=== PATIENT | female | born 1945 | race Caucasian/White ===

== ENCOUNTER 2016-06-10 17:34 | Inpatient (IN) | payer MEDICARE, MEDICAID ==
[~2016-06-10] VITALS: Ht 160 cm; Wt 112.0 kg
--- NOTE | ~2016-06-10 | ECH ---
Transthoracic Echocardiography Report (TTE) Demographics Patient Name NEO ALLEN Date of Study 06/12/2016 Patient Number [id number] Visit Number [id number] Date of 1945 Room Number 431 Gender Female Number Age 71 year(s) Referring Thao Morales Special Officer Sherri Rueda [facility] Physician MD Melody Rodriguez Physician Interpreting Pa Moe MD Brick Layer Physician Supervising Ordering Thao Morales MD/P Physician Nurse [employer] Conclusions Summary Technically fair exam. The estimated left ventricular ejection fraction is 60-65% in underlying atrial fibrillation. The left ventricle is mildly dilated . Mildly dilated right ventricle with normal systolic function. The left atrium is mild to moderately dilated by LA volume index measurement. The right atrium is severely dilated. Mild mitral regurgitation by color Doppler. Mild tricuspid regurgitation by color Doppler. Estimated pulmonary pressures within normal range. Procedure Type of Study TTE procedure:Echo Complete SF. Procedure Date Date: 06/12/2016 Start: 10:20 AM Technical Quality: Adequate visualization Indications:Shortness of breath, Atrial fibrillation and Congestive heart failure. Appropriate Use Criteria: 9 Height: 63 inches Weight: 256 pounds BSA: 2.15 m Rhythm: Atrial fibrillation HR: 70 bpm BP: 126/50 mmHg M-Mode/2D Measurements LV Diastolic Dimension: 5.4 cm LV Systolic Dimension: 3.75 cm LV Septum Diastolic: 1 cm LV PW Diastolic: 0.8 cm AO Root Dimension: 2.68 cm Cardiac Output: 2.23 l/min LA Dimension: 4.19 cm Cardiac Index: 1.04 l/min*m RV Diastolic Dimension: 3.31 cm LA volume index: 41 ml/m LVOT: 1.82 cm LVOT VTI: 12.23 cm RV Base: 4.5 cm LV Stroke volume: 31.8 ml RV Mid: 3.5 cm LV Stroke volume index: 14.79 ml/m RV Length: 7.2 cm TAPSE: 3.3 cm Doppler Measurements AV Peak Velocity: 0.97 m/s MV Peak E-Wave: 1.19 m/s AV Peak Gradient: 3.76 mmHg AV Mean Gradient: 2.66 mmHg LVOT Peak Velocity: 0.53 m/s AV Area (Continuity):1.54 cm PV Peak Velocity: 0.82 m/s TR Velocity:2.46 m/s PV Peak Gradient: 2.67 mmHg TR Gradient:24.21 mmHg Estimated PASP: 34.21 mmHg Estimated RAP:10 mmHg Estimated RVSP: 34 mmHg RA Area: 27.42 cm Findings Left Ventricle The left ventricle is mildly dilated . Diastolic function indeterminate due to patient's arrhythmia. Right Ventricle Mildly dilated right ventricle with normal systolic function. Left Atrium The left atrium is mild to moderately dilated by LA volume index measurement. Right Atrium The right atrium is severely dilated. Mitral Valve Mild mitral annular calcification. Mild mitral regurgitation by color Doppler. Aortic Valve The aortic valve is mildly sclerotic. There is no aortic regurgitation by color Doppler. Tricuspid Valve Normal tricuspid valve structure and function. Mild tricuspid regurgitation by color Doppler. Estimated pulmonary pressures within normal range. Pulmonic Valve The pulmonic valve is not well visualized. Pericardial Effusion No evidence of pericardial effusion. Miscellaneous Visualized portions of the aortic root and ascending aorta appear normal in size. Pleural Effusion No evidence of pleural effusion. Signature
[2016-06-16] MEDS ORDERED: FEOSOL-DPS325 MG PO (16:29)
[2016-06-16] MEDS ORDERED: DELTASONE DPS10 MG PO (16:30)
[2016-06-16] MEDS ORDERED: DILT-XR240 MG PO (16:30)
[2016-06-16] MEDS ORDERED: ZAROXOLYN2.5 MG PO (16:30)
[2016-06-16] MEDS ORDERED: VITAMIN D-32000 UNI1 PO (16:31)
[2016-06-16] MEDS ORDERED: KLOR-CON M2020 ME1 PO (16:31)
[2016-06-16] MEDS ORDERED: SYNTHROID DPS0.05 MG PO (16:32)
[2016-06-16] MEDS ORDERED: LEXAPRO DPS20 MG PO (16:33)
[2016-06-16] MEDS ORDERED: PROVENTIL2.5 MG/3 M IH (16:33)
[2016-06-16] MEDS ORDERED: COUMADIN DPS3 MG PO (16:33)
[2016-06-16] MEDS ORDERED: PROVENTIL HFA6.7 GM IH (16:33)
[2016-06-16] MEDS ORDERED: LASIX DPS40 MG PO (16:33)
[2016-06-16] MEDS ORDERED: ZEBETA5 MG PO (16:34)
[2016-06-16] MEDS ORDERED: ATIVAN-DPS0.5 MG PO (16:34)
[2016-06-16] MEDS ORDERED: XALATAN2.5 ML PO (16:34)
[2016-06-16] MEDS ORDERED: PRILOSEC DPS20 MG PO (16:35)
[2016-06-16] MEDS ORDERED: LYRICA50 MG PO (16:35)
[2016-06-16] MEDS ORDERED: ATROVENT SOLN.2.5 ML IH (16:35)
[2016-06-16] MEDS ORDERED: SENOKOT DPS8.6 MG PO (16:35)
[2016-06-16] MEDS ORDERED: PULMICORT0.25 MG/2 IH (16:36)
[2016-06-16] MEDS ORDERED: TYLENOL DPS325 MG PO (16:36)
--- NOTE | 2016-06-17 12:37 | HP ---
ADMIT: 06/10/2016 RM/LOC: 431 [facility] MR#: [id number] [address] [address] EARLENE ALLEN [address] [place] [id number] History and Physical SEX: F AGE: 71 : 1945 DATE OF SERVICE: 06/10/2016 CHIEF COMPLAINT: Worsening shortness of breath for the last week. HISTORY OF PRESENT ILLNESS: Earlene is a 71-year-old woman with a somewhat complicated past history as outlined below. She stated that she has been fighting "cold symptoms" for the last 4-7 days and in fact they started on oral Keflex about 4 days ago. She continued to have a lot of "throat clearing cough" and worsening shortness of breath. She states she went to [place] yesterday and "I could hardly make it out to the parking lot, I was so short of breath." She felt somewhat lightheaded without episode, so drove herself to the emergency room where she was found to have a temp of 100.4, and O2 sats were 82% on room air on admission. On 3-4 L, her O2 sats increased to 95%. She was given Decadron and DuoNeb and she felt a bit better, but her O2 sats were still low without oxygen. Chest x-ray was negative and her general lab workup was essentially benign with negative sepsis markers. She is admitted for further evaluation and treatment. PAST MEDICAL HISTORY: She has medical diagnosis of a recent stage II left buttock pressure ulcer that had essentially healed, she has chronic atrial fibrillation and is on Coumadin, she has history of systemic hypertension and underlying moderate COPD (she sees Dr. Daly routinely). She is a former smoker. She has chronic low back and lower extremity pain syndrome. She is status post gastric bypass with about 100 pound weight loss in the last 5 years. She has diffuse degenerative arthritis, type 2 diabetes - improved after gastric bypass. She is also hypothyroid. MEDICATIONS: Include: 1. Ferrous sulfate 325 mg daily. 2. Metolazone 2.5 mg daily. 3. Prednisone 1 mg daily. 4. Diltiazem ER 240 mg daily. 5. Vitamin D 2000 International Units daily. 6. Potassium chloride 20 mEq b.i.d. 7. Levothyroxine 50 mcg daily. 8. Coumadin 3 mg daily. 9. Pulmicort 0.25 in nebulizer p.r.n. 10.Furosemide 40 mg b.i.d. 11.Albuterol 2.5 mg q.i.d. per nebulizer. 12.Celexa 20 mg daily. 13.Ventolin HFA p.r.n. 14.Lorazepam 0.5 mg q.6 hours p.r.n. 15.Bisoprolol 5 mg daily. 16.Latanoprost 0.005% one drop both eyes at bedtime. 17.Atrovent 0.02% q.i.d. (eyedrops). 18.Lyrica 50 mg t.i.d. 19.Senokot one or two tabs b.i.d. 20.Omeprazole 20 mg b.i.d. ADMIT: 06/10/2016 RM/LOC: 431 [facility] MR#: [id number] [address] [address] [place] [address] History and Physical SEX: F AGE: 71 : 1945 ALLERGIES: THERE ARE NO ALLERGIES REPORTED. SOCIAL HISTORY: Reveals that she is a former smoker. She does not use alcohol. She lives independently in her home. FAMILY HISTORY: Noncontributory. REVIEW OF SYSTEMS: Otherwise essentially negative. She reports no other recent illnesses. She denies any ominous chest pain or more worsening trouble breathing until the onset of these current symptoms. She just saw Dr. Daly a week or 10 days ago and no major Rx changes were made. She states her bladder and bowel functions have been normal. Her lower extremity edema has been stable. She has no history for neurologic disorder and her depression has been stable. PHYSICAL EXAM: VITAL SIGNS: Since admission, she has been afebrile. Blood pressures have been in the 105-120 systolic range with a pulse of 90 to 100 in atrial fibrillation on telemetry. HEENT: She has obvious nasal congestion. Throat is minimally inflamed with yellow postnasal drip. NECK: Reasonably supple. LUNGS: Actually now sound clear with diminished breath sounds. I do not detect any obvious wheezes or rhonchi or rales. CARDIAC: Exam shows distant sounds and irregular regular cardiac rhythm, about 100. I do not detect an obvious murmur. ABDOMEN: Soft. No masses, tenderness, organomegaly. EXTREMITIES: Lower extremities show no edema. She has palpable pulses in her feet. NEUROLOGIC: Essentially normal. IMPRESSION: 1. Exacerbation of chronic obstructive pulmonary disease. 2. Atrial fibrillation - on chronic Coumadin therapy. ADMIT: 06/10/2016 RM/LOC: 431 [facility] MR#: [id number] [address] [address] [place] [address] History and Physical SEX: F AGE: 71 : 1945 3. Recent left buttock pressure ulcer. 4. Systemic hypertension. 5. Chronic obstructive pulmonary disease. 6. Former smoker. 7. Chronic low back pain/lower extremity pain. 8. Status post gastric bypass. 9. Diffuse osteoarthritis. 10.Type 2 diabetes. PLAN: She has been admitted for bronchopulmonary "toilet" and dual antibiotic therapy. We will follow baseline labs. Further treatment will depend on her response for initial therapies. Ayush Osuna MD/ krysta JOB #: [id number] CC: Ayush Osuna MD, Attending Physician Ayush Osuna MD, Family Physician
--- NOTE | 2016-06-18 15:07 | CO ---
ADMIT: 06/10/2016 RM/LOC: 431 [facility] MR#: [id number] [address] [address] EARLENE ALLEN [address] [place] [id number] Consultation SEX: F AGE: 71 : 1945 DATE OF CONSULTATION: 06/12/2016 ATTENDING PHYSICIAN: Ayush Osuna MD CONSULTING PHYSICIAN: Michael Oliver MD REASON FOR CONSULTATION: Questionable congestive heart failure. COOPER Chauhan Student, dictating for Michael Oliver MD HISTORY OF PRESENT ILLNESS: Earlene is a pleasant 71-year-old female who I had the opportunity for Cardiology regarding question of congestive heart failure. The patient states that she was admitted for increasing shortness of breath, cough, stomach ache. She was admitted on June 10. The patient had a respiratory panel and was tested by [facility] and she tested positive for RSV. The patient has a medical history of AFib, hypertension, diabetes, tobacco use, hypothyroidism, GERD, glaucoma, and osteoarthritis. Her last cath was in 2007 that demonstrated an LAD with 20% blockage. Her last echo was in 2015, which showed an ejection fraction of 60%. The patient was last seen in [facility] on May 26, 2016, regarding her atrial fibrillation. The patient was on warfarin sodium for anticoagulation and bisoprolol 5 mg and diltiazem XR 180 mg capsule for rate control of her atrial fibrillation. At this time, the patient denies chest pain, palpitations, changes in vision, or headache. The patient does admit to increasing shortness of breath and worsening peripheral edema, especially on her lower extremities bilaterally. The patient pointed out that she has noted erythema around her medial malleolus on her right lower leg. PAST MEDICAL HISTORY: Significant for anxiety, asthma, allergic rhinitis, bronchitis, chronic cough, CAD, depression, diabetes, GERD, glaucoma, heartburn, hemorrhoids, obesity, sleep apnea, osteoarthritis, and ulcers. PAST SURGICAL HISTORY: Significant for left shoulder surgery in 2012, cholecystectomy, bilateral knee replacements, surgery of the left big toe, and a lyles's cyst removal. ALLERGIES: TO VARENICLINE TARTRATE OR CHANTIX. CURRENT MEDICATIONS: 1. Cardizem 240 mg p.o. daily. 2. Ferrous sulfate 325 mg p.o. daily. 3. Klor-Con 20 mEq p.o. b.i.d. 4. Lasix 40 mg p.o. b.i.d. 5. Lexapro 20 mg p.o. daily. 6. Lyrica 50 mg p.o. t.i.d. 7. Protonix 40 mg p.o. b.i.d. 8. Senokot 8.6 mg p.o. b.i.d. 9. Synthroid 0.05 mg p.o. at 5:30. 10.Vitamin D 1000 units p.o. daily. 11.Zaroxolyn 2.5 mg p.o. daily. ADMIT: 06/10/2016 RM/LOC: 431 [facility] MR#: [id number] [address] [address] [place] [address] Consultation SEX: F AGE: 71 : 1945 12.Zebeta 5 mg p.o. daily. 13.DuoNeb 3 mg IH q.i.d. 14.Proventil 2.5 mg by mouth IH q.i.d. 15.Xalatan 0.005% 2.5 mg at bedtime. 16.NovoLog 100 units subcu a.c. and at bedtime. 17.Decadron 8 mg q.8 hours. 18.Levaquin 150 mg q.24 hours. 19.Normal saline IV injection 10 mg IV daily. FAMILY HISTORY: Significant for myocardial infarction in her mother at age 72. Her mother also had emphysema. Her mother was also heavy smoker. Her daughter also has type 2 diabetes. SOCIAL HISTORY: The patient admits to using soda and caffeine daily. The patient has a sedentary activity level currently. She denies alcohol use or drug use. Currently she is on a low-sodium diet. The patient admits to 54-pack year smoking history. REVIEW OF SYSTEMS: GENERAL: Denies fatigue, fever, chills, sweats, rash, or weight loss. EYES: The patient admits to glaucoma in her left eye. Also notices hearing loss that is degenerative. Denies double vision, blurred vision, cataracts. Denies problems with nose, mouth, or throat. LUNGS: She admits to asthma, sleep apnea, emphysema. Denies cough, sputum production, or bronchitis. Denies snoring loudly, wakefulness at night, or fatigue upon awakening. HEART: She has significant hypertension. GASTROINTESTINAL: Denies heartburn or difficulty swallowing. No change in bowel habits. Denies dark or bloody stools. No history of ulcers, hiatal hernia, or gallbladder or liver disease. GENITOURINARY: Denies dysuria, hematuria, nocturia, urinary tract infection, or kidney stones. Denies history of renal insufficiency or failure. MUSCULOSKELETAL: Denies history of arthritis or gout. Denies muscle or joint pains. ENDOCRINE: Denies history of thyroid dysfunction or diabetes. HEMATOLOGIC: Denies history of anemia, easy bruising, or cancer. NEUROLOGIC: Denies chronic headaches, dizziness, syncope, stroke, seizures or numbness or tingling. PSYCHIATRIC: Denies history of mental illness or feelings of depression. PHYSICAL EXAMINATION: Per Dr. Oliver. VITAL SIGNS: Temperature 97, pulse 77, respirations 18, BP 126/50, and O2 of 94% with nasal cannula oxygen. Weight is up 5 pounds since her last visit in [facility], which was on 05/26/2016. GENERAL: The patient is currently short of breath, admits to nausea, body aches, but denies chest pain. HEENT: JVP is difficult to visualize. No lymphedema. HEART: Sounds irregularly irregular. LUNGS: Have end-expiratory wheezes audible at lung bases bilaterally. The ADMIT: 06/10/2016 RM/LOC: 431 [facility] MR#: [id number] [address] [address] EARLENE ALLEN [address] [place] [id number] Consultation SEX: F AGE: 71 : 1945 patient is not cyanotic. EXTREMITIES: Show 2 to 3+ peripheral edema below the knee and this is chronic. ABDOMEN: Distant bowel sounds. Obese, nontender, and nondistended. NEURO: Intact. PSYCH: Normal. DIAGNOSTIC DATA: Sodium was 135, potassium 4.1, chloride was 97, bicarb is 32, BUN was 27, creatinine was 0.9, glucose is 229, ALT was 52, AST was 42, albumin was 3.3. CK was 86. GFR was 64. BNP was 1952. Chest x-ray looked okay. Last EKG was 06/10/2016, demonstrated atrial fibrillation with rapid ventricular rate, old inferior infarction, possible septal infarction. ASSESSMENT AND PLAN: 1. Respiratory syncytial virus. 2. Lower extremity edema, this is chronic, but weight is up about 4 pounds. We will give her IV Lasix while she is here. Her chest x-ray appeared normal. The patient does not appear to have heart failure. 3. Permanent atrial fibrillation. The patient is on Coumadin and is being rate controlled with Zebeta and Cardizem. 4. Obesity. 5. Chronic obstructive pulmonary disease. 6. Nonobstructive coronary artery disease. The patient's symptoms seems to be more due to COPD exacerbation due to RSV. She is currently not showing any signs of heart failure on chest x-ray. I appreciate the Cardiology consult. We will continue to monitor the patient while she is here. Thank you for the consult. I have read and agreed with the documentation that has been completed regarding this visit. By signing this record, I attest that the documentation was completed in my physical presence and is an accurate record of the encounter. COOPER Chauhan Student / Michael Oliver MD / krysta JOB #: [id number] CC: Ayush Osuna MD, Attending Physician Ayush Osuna MD, Family Physician
--- NOTE | 2016-06-18 19:48 | DS ---
ADMIT: 06/10/2016 RM/LOC: 431 [facility] MR#: [id number] [facility]#: [id number] [address] [address] NEO ALLEN [address] [place] [address] Discharge Summary SEX: F AGE: 71 : 1945 ADMISSION DATE: 06/10/2016 DISCHARGE DATE: 06/15/2016 FINAL DIAGNOSES: 1. RSV (respiratory syncytial virus) bronchiolitis. 2. Chronic obstructive disease with exacerbation secondary to the RSV (respiratory syncytial virus) infection. 3. Chronic atrial fibrillation with chronic anticoagulation. 4. Obesity. 5. Nonobstructive coronary artery disease. 6. Gastroesophageal reflux. 7. Osteoarthritis degenerative changes with secondary joint pain and weakness. HISTORY OF PRESENT ILLNESS: This is a 71-year-old lady who typically lives on her own with family and has to use a walker or cane to get around because of her arthritis, her obesity, and debilitation. She came into the hospital with hypoxia and cold symptoms for several days. She had been on an oral antibiotic and was not getting any better. She had started to have some fevers. In the Emergency Room, oxygenation was 82% on room air. She was given DuoNeb and steroid. Chest x-ray was clear and lab workup was negative for sepsis markers. She was admitted for her hypoxia and further workup. She also has known nonobstructive coronary artery disease. There was concern for congestive heart failure and Cardiology was consulted. She had a little extra diuresis through this hospital stay. On 06/14, Cardiology signed off. She will follow up with Dr. Lopes for just a follow-up visit in about three to four weeks. She was still requiring oxygen at 2 L on 06/14. By the afternoon though, she weaned down to room air. Oxygen saturation remains 90% or greater even with ambulation in the halls. On 06/15, she is stable. No fevers. She is pretty much back to baseline. She has to use a walker to ambulate and she is independent in her room. With this respiratory virus, she can expect to have persistent cough for probably another week. She does not need any further antibiotics. There were no bacterial findings. She will be dismissed home and follow up in the next week or two. I do note that her INR bumped up to 3.7, so we will hold her Coumadin for a couple of days and then resume that with followup in the office. Please see her med list below. She was also encouraged to continue to follow a low- sodium and ADA diet, which will help prevent worsening edema, which had occurred when she was sick and just was not able to get up and around. Medicines are: 1. Cardizem 240 daily. 2. Iron 325 mg daily. 3. Potassium 20 mEq b.i.d. 4. Lasix 40 mg b.i.d. ADMIT: 06/10/2016 RM/LOC: 431 [facility] MR#: [id number] [address] [address] [place] [address] Discharge Summary SEX: F AGE: 71 : 1945 5. Lexapro 20 mg daily. 6. Lyrica 50 mg t.i.d. 7. Omeprazole 20 mg b.i.d. 8. Senokot one or two tabs b.i.d. 9. Synthroid 0.05 mg daily. 10.Vitamin D 2000 units daily. 11.Zaroxolyn 2.5 mg daily. 12.Zebeta 5 mg daily. 13.Xalatan eye drops, one drop in each eye at bedtime. 14.Ativan 0.5 mg once a day as needed for anxiety. 15.Tylenol 650 mg every 4 hours p.r.n. pain. 16.She will use Pulmicort 0.25 nebulized b.i.d. for ten days and then as needed for recurrent wheezing episodes, which was her previous routine. 17.She will also continue albuterol via nebulizer q.i.d. and every 3 hours p.r.n. 18.I will wean down her steroids. She was on Decadron in the hospital. She was typically taking 1 mg of prednisone a day at home. I will have her wean down by taking 10 mg of prednisone b.i.d. for three days, then 10 mg daily for three days, then 5 mg daily for three days, and then back down to 1 mg daily. 19.We will hold Coumadin on June 15 and June 16, and then restart at 1.5 mg on Tuesdays, , Saturdays, and 3 mg on Mondays, Wednesdays, Fridays, Sundays, and get another PT/INR and a BMP at her followup visit in about a week and half. Zoe Ward MD/ camila JOB #: [id number] CC: Ayush Osuna MD, Attending Physician Ayush Osuna MD, Family Physician
--- NOTE | 2016-06-25 15:34 | ER ---
ADMIT: 06/10/2016 RM/LOC: 431 [facility] MR#: [id number] [address] [address] NEO ALLEN [address] [place] [address] Emergency Room Report SEX: F AGE: 71 : 1945 DATE: 06/10/2016 CHIEF COMPLAINT: Shortness of breath. HISTORY OF PRESENT ILLNESS: This is a 71-year-old female who has a history of COPD, atrial fibrillation, diabetes, hypertension. She comes in complaining that she has had upper respiratory infection for the last 3 days. She felt very lightheaded and short of breath starting yesterday. She did start Keflex that she was prescribed from Dr. Osuna, but today she just felt significantly worse, felt lightheaded. When she arrived in the ER, she did have a low-grade temp of 100.4, saturations were 82% on room air. She is now on 4 L saturating at 95%. Feels a little bit better after Decadron and a DuoNeb. Chest x-ray was done, but it is negative for any pneumonia, over-read by Dr. Lockwood. CLINICAL IMPRESSION: Chronic obstructive pulmonary disease exacerbation. DISPOSITION: I did speak with Dr. Osuna at 1712 hours. He will admit the patient. Levaquin 750 mg IV has been started down here in the emergency room. COOPER Roldan / Anthony Lockwood MD / modl JOB #: [id number] CC: Ayush Osuna MD, Attending Physician Ayush Osuna MD, Family Physician
[2016-07-16] MEDS ORDERED: NORCO 7.5-3251 EACH PO (17:52)
[2016-07-16] MEDS ORDERED: PRILOSEC DPS20 MG PO (17:52)
[2016-07-16] MEDS ORDERED: XALATAN2.5 ML OU (17:52)
[2016-07-16] MEDS ORDERED: ZEBETA5 MG PO (17:53)
[2016-07-16] MEDS ORDERED: LYRICA150 MG PO (17:53)
[2016-07-16] MEDS ORDERED: FEOSOL-DPS325 MG PO (17:53)
[2016-07-16] MEDS ORDERED: VITAMIN D-32000 UNI1 PO (17:54)
[2016-07-16] MEDS ORDERED: ATIVAN-DPS0.5 MG PO (17:54)
[2016-07-16] MEDS ORDERED: COUMADIN DPS3 MG PO ×2 (17:55)
[2016-07-16] MEDS ORDERED: LASIX DPS40 MG PO (17:56)
[2016-07-16] MEDS ORDERED: PROVENTIL HFA6.7 GM IH (17:56)
[2016-07-16] MEDS ORDERED: KLOR-CON M2020 ME1 PO (17:56)
[2016-07-16] MEDS ORDERED: ZOVIRAX400 MG PO (17:57)
[2016-07-16] MEDS ORDERED: LEXAPRO DPS20 MG PO (17:57)
[2016-07-16] MEDS ORDERED: SYNTHROID DPS0.05 MG PO (17:57)
[2016-07-16] MEDS ORDERED: PULMICORT0.25 MG/2 IH (17:58)
[2016-07-16] MEDS ORDERED: COLACE-DPS100 MG PO (17:58)
[2016-07-16] MEDS ORDERED: DELTASONE DPS1 MG PO (17:58)
[2016-07-16] MEDS ORDERED: TYLENOL DPS325 MG PO (17:59)
[2016-07-16] MEDS ORDERED: MAALOX DPS30 ML PO (17:59)
[2016-07-16] MEDS ORDERED: NITROSTAT0.4 MG SL (18:00)
[2016-07-16] MEDS ORDERED: ANUSOL-HC30 GM PR (18:00)
== END 2016-06-15 14:50 | disposition home or self-care (01) | DRG 202 ==
LOC: ER 17:34 → 4PCU 19:12
PROVIDERS: ADMIT Family Medicine
DX: J21.0 Acute bronchiolitis due to respiratory syncytial virus (principal); J44.1 Chronic obstructive pulmonary disease with (acute) exacerbation; I48.2 Chronic atrial fibrillation; B97.4 Respiratory syncytial virus as the cause of diseases classified elsewhere; E11.9 Type 2 diabetes mellitus without complications; Z68.42 Body mass index [BMI] 45.0-49.9, adult; I10 Essential (primary) hypertension; G89.4 Chronic pain syndrome; M19.90 Unspecified osteoarthritis, unspecified site; E03.9 Hypothyroidism, unspecified; R60.9 Edema, unspecified; K21.9 Gastro-esophageal reflux disease without esophagitis; F41.9 Anxiety disorder, unspecified; J30.9 Allergic rhinitis, unspecified; I25.10 Atherosclerotic heart disease of native coronary artery without angina pectoris; F32.9 Major depressive disorder, single episode, unspecified; H40.9 Unspecified glaucoma; K64.9 Unspecified hemorrhoids; E66.9 Obesity, unspecified; G47.30 Sleep apnea, unspecified; Z98.84 Bariatric surgery status; Z87.891 Personal history of nicotine dependence; Z79.01 Long term (current) use of anticoagulants; Z98.0 Intestinal bypass and anastomosis status; Z96.653 Presence of artificial knee joint, bilateral

== ENCOUNTER 2016-07-13 16:38 | Observation (INO) | payer MEDICARE, MEDICAID ==
[~2016-07-13] VITALS: Ht 160 cm; Wt 111.4 kg
[~2016-07-13 16:38] MED LIST: ATIVAN-DPS0.5 MG PO; ATROVENT SOLN.2.5 ML IH; COUMADIN DPS3 MG PO; DELTASONE DPS10 MG PO; DILT-XR240 MG PO; FEOSOL-DPS325 MG PO; KLOR-CON M2020 ME1 PO; LASIX DPS40 MG PO; LEXAPRO DPS20 MG PO; LYRICA50 MG PO; PRILOSEC DPS20 MG PO; PROVENTIL HFA6.7 GM IH; PROVENTIL2.5 MG/3 M IH; PULMICORT0.25 MG/2 IH; SENOKOT DPS8.6 MG PO; SYNTHROID DPS0.05 MG PO; TYLENOL DPS325 MG PO; VITAMIN D-32000 UNI1 PO; XALATAN2.5 ML PO; ZAROXOLYN2.5 MG PO; ZEBETA5 MG PO
--- NOTE | 2016-07-15 07:07 | HP ---
ADMIT: 07/13/2016 RM/LOC: 414 [facility] MR#: [id number] [id number] [address] NEO ALLEN [address] [place] [address] History and Physical SEX: F AGE: 71 : 1945 DATE OF SERVICE: 07/13/2016 CHIEF COMPLAINT: Possible syncope with fall and head injury. HISTORY OF PRESENT ILLNESS: Maria Eugenia is a 71-year-old female. Yesterday evening, she was brushing her teeth at her bathroom sink. At this point, the history becomes a little more unclear, she did fall and hit her head. She may or may not have been unconscious. As I quizzed her on this, I suspect she probably was not unconscious, but maybe was a bit impaired. She did not seem to feel like she had any warning that this was going to happen. She had not just had a bowel movement or urinated nor was she having any nausea or vomiting. She was on the ground for 30 to 60 minutes then was able to get up under her own power. She did not call anyone, but had headaches over the next 24 hours, so she elected to come to the emergency room. Dr. Moffett examined her and did a CT scan of her head, chest x-ray, and some limited lab work and this is all reassuring, also an EKG showed her chronic atrial fibrillation. She is not having any chest pain or shortness of breath or other acute symptoms at this time. Recently, she had been seen by [facility] where she is followed for her cardiac issues, and due to increasing edema in her lower extremities, her metolazone was increased from 2.5 mg daily to 5 mg daily. This was about a week and half ago. Subsequent electrolytes done at our office a week later were unremarkable. PAST MEDICAL HISTORY: She was hospitalized at [facility] in June for upper respiratory infection due to RSV. She was short of breath and hypoxic on room air, was treated with steroids, nebulizers, and oxygen, but did not have sepsis. She has had issues with falls periodically according to her notes. She of course is on a lengthy list of medications below. Chronic medical problems include atrial fibrillation, for which she is on chronic Coumadin, hypertension, COPD, she is an on again and off again smoker, obesity for which she has had gastric sleeve surgery and has lost large amount of weight over the last year, obstructive sleep apnea but does not tolerate CPAP, chronic opiate use for chronic generalized pain particularly in the back, she is on over 50 morphine milliequivalents per day. Also, degenerative arthritis, type 2 diabetes for which she is now no longer on medications since her gastric sleeve surgery. Also, hypothyroidism, depression, diastolic congestive heart failure, and nonobstructive coronary artery disease. PAST SURGICAL HISTORY: Sleeve gastrectomy, cholecystectomy, carpal tunnel surgery, total knee arthroplasty, and cardiac catheterization. She has had toe surgery and Hawkins cyst removal. FAMILY HISTORY: Positive for asthma, coronary artery disease, and hypertension in various first-degree relatives. SOCIAL HISTORY: She is retired and disabled and single, still a light smoker. No alcohol. MEDICATIONS: ADMIT: 07/13/2016 RM/LOC: 414 [facility] MR#: [id number] [address] [place] [address] History and Physical SEX: F AGE: 71 : 1945 1. Metolazone 5 mg t.i.d. 2. Potassium chloride 30 mEq t.i.d. 3. Bisoprolol 5 mg daily. 4. Diltiazem CD 240 mg daily. 5. DuoNeb by nebulizer t.i.d. 6. Lexapro 20 mg daily. 7. Albuterol inhaler p.r.n. 8. Hydrocodone 7.5/325, she takes 100 tabs over 14 weeks, which works out to about 7 per day. 9. Lasix 40 mg b.i.d. 10.Latanoprost eyedrops b.i.d. 11.Levothyroxine 50 mcg daily. 12.Lorazepam 0.5 mg daily p.r.n. 13.Lyrica, I am uncertain of the dose, I see different doses. 14.Metolazone 5 mg daily. 15.Omeprazole 20 mg b.i.d. 16.Pulmicort 2 puffs b.i.d. 17.Vitamin D 2000 units daily. 18.Vitamin A capsule daily. 19.Warfarin 1.5 mg Thursday, Thursday, Thursday, and Thursday and 3 mg Thursday, , and Thursday. ALLERGIES: NONE KNOWN. REVIEW OF SYSTEMS: CONSTITUTIONAL: No chills or fevers. EYES: No acute complaints. ENT: No acute complaints. RESPIRATORY: Not short of breath or coughing. CARDIOVASCULAR: No chest pain. NEUROLOGIC: Possible syncope. No seizures. No new focal neurologic symptoms. PSYCHIATRIC: Depression is stable. GASTROINTESTINAL: No nausea, vomiting, diarrhea, or bowel changes. GENITOURINARY: No urinary changes. HEMATOLOGIC: No history of bleeding. No history of blood clots. PHYSICAL EXAMINATION: GENERAL: She is currently alert, comfortable, in no acute distress. She is alert, responsive, and appropriate. VITAL SIGNS: Temp 97.6, heart rate 100, respirations 20, BP 101/61 with a map of 68, and O2 saturation 91% on room air. NEUROLOGIC: Moves all extremities equally. Speech is not slurred. She is not aphasic. She is oriented x3. No cranial nerve abnormalities. Eye movement is full. PSYCH: She is calm, not overtly anxious or depressed. ENT: TMs are clear. No nasopharyngeal drainage. Throat is moist. No lesion seen. EYES: Pupils are equal and reactive to light. Sclerae are clear. NECK: No masses or lymphadenopathy or venous distention. ADMIT: 07/13/2016 RM/LOC: 414 [facility] MR#: [id number] [id number] [address] NEO ALLEN [address] [place] [address] History and Physical SEX: F AGE: 71 : 1945 HEART: Irregular rhythm. No murmurs. Rhythm is atrial fib. LUNGS: Clear to auscultation throughout, normal respiratory effort. BREASTS: Not examined. ABDOMEN: Still overweight female. No abdominal masses or tenderness. PELVIC AND RECTAL: Not performed. SKIN: No areas of acute rashes. EXTREMITIES: Lower extremities still minor edema, minor ruddiness of both lower legs. No ruthie cellulitis. No open areas. Upper extremities grossly normal. BACK: Nontender. IMPRESSION: 1. Syncope versus near syncope with the fall. 2. She has a hematoma on the right side of her forehead. 3. Posttraumatic headache possibly even mild concussion. 4. Hypokalemia. 5. All her chronic medical problems as discussed above. PLANS: She is OPO to telemetry. We will get orthostatic blood pressures as this could have be related to one of her medications such as metolazone dose that was increased. With her COPD and chronic opiate therapy, she certainly would be at risk for events such as this. We reviewed some of her medications. Medications we will give tonight include Lexapro, Lortab, potassium, Pulmicort, albuterol, and latanoprost. We will give other medications tomorrow. Since she has seen Cardiology and they are familiar with her and she has had this possible syncopal spell, we will ask them to weigh in on her case tomorrow. Franck Song MD/ krysta JOB #: [id number] CC: Ayush Osuna MD, Attending Physician Ayush Osuna MD, Family Physician
[2016-07-16] MEDS ORDERED: PRILOSEC DPS20 MG PO (17:52)
[2016-07-16] MEDS ORDERED: NORCO 7.5-3251 EACH PO (17:52)
[2016-07-16] MEDS ORDERED: XALATAN2.5 ML OU (17:52)
[2016-07-16] MEDS ORDERED: LYRICA150 MG PO (17:53)
[2016-07-16] MEDS ORDERED: ZEBETA5 MG PO (17:53)
[2016-07-16] MEDS ORDERED: FEOSOL-DPS325 MG PO (17:53)
[2016-07-16] MEDS ORDERED: VITAMIN D-32000 UNI1 PO (17:54)
[2016-07-16] MEDS ORDERED: ATIVAN-DPS0.5 MG PO (17:54)
[2016-07-16] MEDS ORDERED: COUMADIN DPS3 MG PO ×2 (17:55)
[2016-07-16] MEDS ORDERED: PROVENTIL HFA6.7 GM IH (17:56)
[2016-07-16] MEDS ORDERED: KLOR-CON M2020 ME1 PO (17:56)
[2016-07-16] MEDS ORDERED: LASIX DPS40 MG PO (17:56)
[2016-07-16] MEDS ORDERED: LEXAPRO DPS20 MG PO (17:57)
[2016-07-16] MEDS ORDERED: ZOVIRAX400 MG PO (17:57)
[2016-07-16] MEDS ORDERED: SYNTHROID DPS0.05 MG PO (17:57)
[2016-07-16] MEDS ORDERED: DELTASONE DPS1 MG PO (17:58)
[2016-07-16] MEDS ORDERED: PULMICORT0.25 MG/2 IH (17:58)
[2016-07-16] MEDS ORDERED: COLACE-DPS100 MG PO (17:58)
[2016-07-16] MEDS ORDERED: TYLENOL DPS325 MG PO (17:59)
[2016-07-16] MEDS ORDERED: MAALOX DPS30 ML PO (17:59)
[2016-07-16] MEDS ORDERED: ANUSOL-HC30 GM PR (18:00)
[2016-07-16] MEDS ORDERED: NITROSTAT0.4 MG SL (18:00)
--- NOTE | 2016-07-19 08:46 | ER ---
ADMIT: 07/13/2016 RM/LOC: ER [facility] MR#: [id number] [address] [address] NEO ALLEN [address] [place] [address] Emergency Room Report SEX: F AGE: 71 : 1945 DATE: 07/13/2016 This is a partial trauma note. This is a 71-year-old female who was brought into the Emergency Department after having a syncopal episode at home last night. She was brushing her teeth when she found herself on the floor. She struck her head on the sink on the way down. Did have an obvious contusion over the right forehead. She thinks she was down for just a matter of seconds. Says no premonition, no warning. PAST HISTORY: Atrial fibrillation, congestive heart failure. She is not certain whether she is a diabetic. She said she had been taking insulin in the past, but is currently not, it is apparently diet controlled. She has had no history of syncopal episodes in the past. PHYSICAL EXAMINATION: GENERAL: Reveals a 71-year-old female, who is in no acute distress. HEENT: There is an obvious contusion over the right forehead. Pupils are equal and reactive. Cranial nerves are intact. LUNGS: She has rhonchi bilaterally. CARDIOVASCULAR: Regular rate and regular rhythm. No murmurs, rubs, or gallops. ABDOMEN: Obese, soft, nontender. Positive bowel sounds. EXTREMITIES: Reveal 2+ pitting edema bilaterally. EMERGENCY ROOM COURSE: Partial trauma was called as well as a cardiac work up. Results of the labs revealed a CBC which was unremarkable. EKG showed atrial fibrillation with rate control. Chest x-ray showed vascular congestion. Her BNP was 1414. BUN was 29, glucose 168, potassium 3.0, INR was 1.93. The patient was admitted with a syncopal episode. Emanuel Moffett MD/ krysta JOB #: [id number] CC: Anthony Lockwood MD, Attending Physician
--- NOTE | 2016-07-25 11:50 | CO ---
ADMIT: 07/13/2016 RM/LOC: 414 [facility] MR#: [id number] [address] [address] EARLENE ALLEN [address] [place] [address] Consultation SEX: F AGE: 71 : 1945 DATE OF CONSULTATION: 07/14/2016 ATTENDING PHYSICIAN: Ayush Osuna MD CONSULTING PHYSICIAN: Sung Winn MD REASON FOR CONSULT: Near-syncope with atrial fibrillation. This is Rani Moreno RN, scribing for Dr. Abhi Winn. HISTORY OF PRESENT ILLNESS: Earlene is a 71-year-old female, I have been asked to see in Cardiology consultation by Dr. Song for recent fall, near- syncope, question syncopal episode with history of atrial fibrillation. She follows regularly with [facility], following with Dr. Oliver. She was just in the hospital last month for RSV. She has cardiac risk factors including history of atrial fibrillation, hypertension, diabetes mellitus, ongoing tobacco use with nonobstructive coronary artery disease, 20% mid LAD and diagonal 1. Last echocardiogram was in June of this year, showing ejection fraction of 60% with mild to moderate left atrial enlargement and severe right atrial enlargement. She continues to smoke about a pack a day. She has history of diastolic heart failure and obstructive sleep apnea. Earlene presented to [facility] after having a near syncopal episode. There is question whether or not she lost consciousness, she is not sure. Apparently, yesterday she was at home brushing her teeth when she was rinsing her tooth brush leaning over the sink. She all of a sudden went down, she hit her head on the sink and has a hematoma on her right forehead. She was concerned about a concussion. She said that she laid on the floor for while. She remembers lying on the floor. She is not sure if she lost consciousness, but she does not quite remember falling either. She had no symptoms. Once falling, she stood up and noted a large swelling on her forehead, so she came to the emergency room with concerns of concussion. Evaluation in the ER included a CT scan which did not show any significant abnormalities other than the hematoma, but she was admitted for observation overnight. During the evening, she has not had any significant pauses or arrhythmias that would suggest cause for her fall. She does have some peripheral edema and when she was seen on 07/04 for followup from her hospital in the clinic, she weighed 248 pounds, she is currently 254 pounds. She was concerned about swelling. Her metolazone at her last office visit was increased from 2.5 mg 30 minutes prior to morning Lasix only to 5 mg prior to morning Lasix only. Her med list from home on hospital states that she is taking it three times a day. She verbally states that she is taking it two times a day. Her potassium was to be three times a day, I am unsure how she is taking that. Her potassium was 3.0 on admission. Currently, she is fatigued and she states that she is always lightheaded, but her vitals are stable. She denies any chest pain, shortness of breath, orthopnea, but does have some mild peripheral edema. PAST MEDICAL HISTORY: ADMIT: 07/13/2016 RM/LOC: 414 [facility] MR#: [id number] [address] [place] [id number] EARLENE ALLEN [address] [place] [address] Consultation SEX: F AGE: 71 : 1945 1. Nonobstructive coronary disease. 2. Permanent atrial fibrillation. 3. Hypertension. 4. Diabetes. 5. Tobacco use. 6. Adrenal mass. 7. Allergic rhinitis. 8. Anxiety. 9. Asthma. 10.Bronchitis. 11.Cataracts. 12.Gallbladder disease. 13.Chronic cough. 14.Coronary artery disease. 15.Depression. 16.Gastroesophageal reflux disease. 17.Glaucoma. 18.Migraine headaches. 19.Hemorrhoids. 20.Neuropathy. 21.Obesity. 22.Osteoarthritis. 23.Obstructive sleep apnea, on CPAP. 24.Stomach ulcers. PAST SURGICAL HISTORY: Includes: 1. Left shoulder surgery. 2. Cholecystectomy. 3. Knee replacement bilaterally. 4. Left great toe surgery. 5. Hawkins's cyst removal. ALLERGIES: NO KNOWN MEDICATION ALLERGIES. MEDICATIONS: On the hospital record current medications include; 1. Coumadin 3 mg Thursday, with 1.5 on Thursday, Thursday, Thursday. 2. Deltasone 1 mg p.o. daily. 3. Iron sulfate 325 daily. 4. Potassium chloride 20 mEq p.o. q.i.d. 5. Lasix 40 mg p.o. b.i.d. 6. Lexapro 20 mg daily. 7. Lyrica 150 t.i.d. 8. Protonix 40 b.i.d. 9. Synthroid 50 mcg p.o. daily. 10.Vitamin D 2000 units daily. 11.Zebeta 5 p.o. daily. 12.Zovirax 400 q.i.d. 13.Pulmicort 0.25 inhalation b.i.d. ADMIT: 07/13/2016 RM/LOC: 414 [facility] MR#: [id number] [address] [place] [id number] [place] [address] Consultation SEX: F AGE: 71 : 1945 14.Xalatan 1 drop OU at bedtime. FAMILY HISTORY: Noncontributory. SOCIAL HISTORY: Earlene is but still lives with her ex- and they help take care of each other. She denies any special diet. She denies any caffeine or alcohol use. She continues to smoke cigarettes a pack a day for about 54 years. REVIEW OF SYSTEMS: GENERAL: She reports chronic fatigue. Denies any fever, chills, or sweats. Her weight is up about 6 pounds from office visit on 07/04. EYES: She has history of cataracts. Denies any glaucoma. THROAT, MOUTH, AND EARS: She has chronic rhinitis. Denies any hearing loss. RESPIRATORY: She has history of obstructive sleep apnea, on CPAP. History of COPD. Denies any hemoptysis. GASTROINTESTINAL: Positive for gastroesophageal reflux disease, gallbladder disease, status post cholecystectomy. Denies heartburn or difficulty swallowing. No change in bowel habits. Denies dark or bloody stools. No history of ulcers, hiatal hernia, or liver disease. GENITOURINARY: Denies dysuria, hematuria, nocturia, urinary tract infection, or kidney stones. Denies history of renal insufficiency or failure. MUSCULOSKELETAL: History of osteoarthritis. History of gout. Chronic muscle and joint pains. ENDOCRINE: History of diabetes. History of thyroid disease. HEMATOLOGIC: Denies history of anemia, easy bruising, or cancer. NEUROLOGIC: Denies chronic headaches, dizziness, syncope, stroke, seizures or numbness or tingling. PSYCHIATRIC: History of depression. History of anxiety. PHYSICAL EXAMINATION: VITAL SIGNS: Blood pressure 117/81, heart rate 88, respirations 18, temperature 97.1, oxygenation 96% on O2. SKIN: Nason, warm and dry. EYES: Sclerae clear. No xanthelasmas. ENT: Oral mucosa is pink and moist. No jugular venous distention or carotid bruits. CHEST: Respirations are even and unlabored. Lungs are clear to auscultation. HEART: Irregularly irregular. No murmurs, gallops, or rubs. ABDOMEN: Soft and nontender. MUSCULOSKELETAL: Gait is normal. EXTREMITIES: Peripheral pulses palpable. No clubbing, cyanosis or edema. PSYCHIATRIC: Alert and oriented. Mood and affect are appropriate. DIAGNOSTIC DATA: Sodium 140, potassium 3.0, BUN 29, creatinine 1.0, glucose 168, magnesium 1.9. CK 67, MB less than 0.5, troponin less than 0.015. ProBNP 1418. INR 1.93. White blood cell count 8.8, hemoglobin 12.9, hematocrit 38.9, and platelets 252. ADMIT: 07/13/2016 RM/LOC: 414 [facility] MR#: [id number] [address] [address] ALL[address]ARLENE OLIVA [address] [place] [address] Consultation SEX: F AGE: 71 : 1945 ASSESSMENT AND PLAN: 1. Fall/syncope. 2. Permanent atrial fibrillation. 3. Hypokalemia. 4. Chronic diastolic heart failure. 5. Coronary artery disease. 6. Hypertension. The patient's history is difficult to tell if true syncope versus fall. She is not quite sure what happened. Her EKG and telemetry would monitor without any pauses. She has no chest discomfort. I recommend continuing to monitor for now and maybe plan on discharge tomorrow with a 14 days ZIO patch on discharge to continue to monitor her heart rhythm. Thank you for the consultation. "I have read and agree with the documentation that has been completed regarding this visit. By signing this record, I attest that the documentation was completed in my physical presence and is an accurate record of the encounter." Rani Moreno RN / Sung Winn MD / krysta JOB #: [id number] CC: Ayush Osuna MD, Attending Physician Ayush Osuna MD, Family Physician
== END 2016-07-15 13:30 | disposition home or self-care (01) ==
LOC: ER 16:38 → 4PCU 17:50
PROVIDERS: ADMIT Family Medicine
DX: R55 Syncope and collapse (principal); I48.2 Chronic atrial fibrillation; E87.6 Hypokalemia; I25.10 Atherosclerotic heart disease of native coronary artery without angina pectoris; I11.0 Hypertensive heart disease with heart failure; I50.32 Chronic diastolic (congestive) heart failure; E11.9 Type 2 diabetes mellitus without complications; J45.909 Unspecified asthma, uncomplicated; K21.9 Gastro-esophageal reflux disease without esophagitis; F32.9 Major depressive disorder, single episode, unspecified; G43.909 Migraine, unspecified, not intractable, without status migrainosus; F17.200 Nicotine dependence, unspecified, uncomplicated; E66.9 Obesity, unspecified; M19.90 Unspecified osteoarthritis, unspecified site; G47.33 Obstructive sleep apnea (adult) (pediatric); Z99.89 Dependence on other enabling machines and devices; Z98.890 Other specified postprocedural states; Z90.49 Acquired absence of other specified parts of digestive tract; Z96.653 Presence of artificial knee joint, bilateral; Z79.899 Other long term (current) drug therapy; Z79.01 Long term (current) use of anticoagulants

== ENCOUNTER 2016-09-01 15:58 | Emergency (ER) | payer MEDICARE, MEDICAID ==
[~2016-09-01 15:58] MED LIST changes: +ANUSOL-HC30 GM PR; +COLACE-DPS100 MG PO; +DELTASONE DPS1 MG PO; +LYRICA150 MG PO; +MAALOX DPS30 ML PO; +NITROSTAT0.4 MG SL; +NORCO 7.5-3251 EACH PO; +XALATAN2.5 ML OU; +ZOVIRAX400 MG PO
--- NOTE | 2016-09-07 14:44 | ER ---
ADMIT: 09/01/2016 RM/LOC: ER [facility] MR#: [id number] [address] [address] ALLENNEO Napier [address] [place] [address] Emergency Room Report SEX: F AGE: 71 : 1945 DATE: 09/01/2016 ADDENDUM: CHIEF COMPLAINT: Low back pain. HISTORY OF PRESENT ILLNESS: This is a 71-year-old female who has low back pain, it sounds like she was bending over today and fell forward. X-rays done of her L-spine is negative for any acute fractures, over-read by Dr. Cohen. I am discharging her home, having her take Tylenol for pain, and follow up with her primary care physician if worsens. COOPER Roldan / Jose Cohen MD / krysta JOB #: [id number] CC: Jose Cohen MD, Attending Physician Ayush Osuna MD, Family Physician
== END 2016-09-01 18:00 | disposition home or self-care (01) ==
LOC: ER 15:58
DX: M54.5 Low back pain (principal); F17.210 Nicotine dependence, cigarettes, uncomplicated; F32.9 Major depressive disorder, single episode, unspecified; Z90.49 Acquired absence of other specified parts of digestive tract; I25.10 Atherosclerotic heart disease of native coronary artery without angina pectoris; J44.9 Chronic obstructive pulmonary disease, unspecified; E03.9 Hypothyroidism, unspecified; I11.0 Hypertensive heart disease with heart failure; I50.9 Heart failure, unspecified; Z79.01 Long term (current) use of anticoagulants; Z79.899 Other long term (current) drug therapy; W18.30XA Fall on same level, unspecified, initial encounter